=== PATIENT | male | born 1970 | race Hispanic/Latino ===

== ENCOUNTER 2023-04-12 08:32 | Inpatient (IN) | payer MEDICAID, SELFPAY ==
[2023-04-12] MEDS ORDERED: Iopamidol-370 76% 500 ML MDV (1 ML CHARGE) ONE (09:14)
[2023-04-12] MEDS ORDERED: Aspirin Chewable 81 MG TAB ONE (10:07)
[2023-04-12 10:11] LABS: #Basophils 0.1 thou/uL (0.0-0.2); #Monocytes 1.3 thou/uL (0.11-0.59); #Neutrophils 11.8 thou/uL (1.40-6.50); %Basophils 0.3 % (0.0-1.0); %Eosinophils 11.2 % (0.0-10.0); %Lymphocytes 12.8 % (21.0-51.0); %Monocytes 7.5 % (0.0-10.0); %Neutrophils 67.5 % (42.0-75.0); Hematocrit 36.1 % (42.0-52.0); Hemoglobin 12.3 g/dL (14.0-18.0); Mean Corpuscular HGB CONC 34.1 g/dL (32.0-36.0); Mean Corpuscular Hemoglobin 30.4 pg (27.0-31.0); Mean Corpuscular Volume 89.4 fl (78.0-98.0); Mean Platelet Volume 10.8 fL (7.4-10.4); Platelet Count 331 10x3/uL (130-400); RBC Distribution Width 13.3 % (11.5-14.5); Red Blood Cell (RBC) Count 4.04 mill/uL (4.70-6.10); White Blood Cell (WBC) Count 17.5 10x3/uL (4.8-10.8)
[2023-04-12 10:37] LABS: ALT (SGPT) 88 U/L (8-55); AST (SGOT) 21 U/L (5-34); Albumin 3.7 g/dL (3.5-5.0); Alkaline Phosphatase 81 U/L (40-110); Anion Gap 14 mmol/L (10-20); BUN (Urea Nitrogen) 36 mg/dL (8.4-25.7); Bilirubin, Total 0.5 mg/dL (0.2-1.2); Calc. Creatinine Clearance 0 mL/min (70-130); Calcium 8.8 mg/dL (7.8-10.44); Carbon Dioxide 26 mmol/L (22-29); Chloride 100 mmol/L (98-107); Estimated GFR 43; Globulin 3.1 g/dL (2.4-3.5); Glucose 266 mg/dL (70-105); Potassium 4.4 mmol/L (3.5-5.1); Protein, Total 6.8 g/dL (6.0-8.3); Sodium 136 mmol/L (136-145)
[2023-04-12 10:54] LABS: SARS-CoV-2 NAA Rapid Test Not Detected (NotDetected)
[2023-04-12] MEDS ORDERED: Furosemide 40 MG/4 ML VIAL ONE (10:54)
[2023-04-12] MEDS ORDERED: Piperacillin/Tazobactam 3.375 GM VIAL ONE (10:54)
[2023-04-12] MEDS ORDERED: Vancomycin 1 GM/200 ML (FROZEN) BAG ONE ×2 (10:54→11:01)
[2023-04-12] MEDS ORDERED: Sodium Chloride 0.9% 0 ML ONE (10:55)
[2023-04-12 11:06] LABS: Troponin I 4.835 ng/mL (< 0.028)
[2023-04-12 12:27] LABS: INR-International Normal Ratio 1.1; PTT 27.4 sec (22.9-36.1); Prothrombin Time 14.8 sec (12.0-14.7)
[2023-04-12] MEDS ORDERED: Acetaminophen 325 MG TAB PO PRN (13:23)
[2023-04-12] MEDS ORDERED: Senokot S 8.6-50 MG TAB PO PRN (13:23)
[2023-04-12] MEDS ORDERED: Ipratropium/Albuterol 3 ML NEB NEB PRN (13:32)
[2023-04-12] MEDS ORDERED: Glucagon 1 MG/ML KIT IM PRN (13:35)
[2023-04-12] MEDS ORDERED: Dextrose 5% in Water 1,000 ML IV PRN (13:35)
[2023-04-12] MEDS ORDERED: Dextrose 50% Abboject 50 ML SYRINGE SLOW IVP PRN (13:35)
[2023-04-12 15:13] LABS: Magnesium 1.8 mg/dL (1.6-2.6)
[2023-04-12] MEDS: cefTRIAXone\\ROCEPHIN 2 GM in Sodium Chloride 0.9% 100 ML IVPB SCH (16:27)
[2023-04-12] MEDS: HumaLOG 300 UNITS/3 ML VIAL SC PRN ×2 (16:27→20:52)
[2023-04-12 17:58] LABS: Troponin I 4.547 ng/mL (< 0.028)
[2023-04-12] MEDS ORDERED: Furosemide 20 MG/2 ML VIAL SLOW IVP SCH (18:00)
[2023-04-12] MEDS: Heparin 10,000 UNITS/ 10 ML VIAL SLOW IVP SCH (18:11)
[2023-04-12] MEDS: Heparin 25,000 units/D5W 500 ML IV SCH (18:13)
[2023-04-12] MEDS: Benzonatate 100 MG CAP PO PRN (18:20)
[2023-04-12 19:53] LABS: Legionella Urinary Ag Negative (Negative); Strep pneumo Urine Ag NEGATIVE (NEGATIVE)
[2023-04-12] MEDS: Atorvastatin Calcium 40 MG TAB PO SCH (20:36)
[2023-04-12] MEDS: Famotidine 20 MG TAB PO SCH (20:36)
[2023-04-12 21:08] LABS: Troponin I 5.974 ng/mL (< 0.028)
[2023-04-13] MEDS: Heparin 10,000 UNITS/ 10 ML VIAL SLOW IVP SCH ×4 (01:15→23:49)
[2023-04-13 05:39] LABS: #Basophils 0.1 thou/uL (0.0-0.2); #Eosinphils 2.1 thou/uL (0.0-0.7); #Monocytes 1.2 thou/uL (0.11-0.59); #Neutrophils 10.4 thou/uL (1.40-6.50); %Basophils 0.4 % (0.0-1.0); %Eosinophils 12.7 % (0.0-10.0); %Lymphocytes 14.9 % (21.0-51.0); %Monocytes 7.2 % (0.0-10.0); %Neutrophils 63.9 % (42.0-75.0); Hematocrit 37.5 % (42.0-52.0); Hemoglobin 12.4 g/dL (14.0-18.0); Mean Corpuscular HGB CONC 33.1 g/dL (32.0-36.0); Mean Corpuscular Hemoglobin 29.8 pg (27.0-31.0); Mean Corpuscular Volume 90.1 fl (78.0-98.0); Mean Platelet Volume 10.9 fL (7.4-10.4); Platelet Count 336 10x3/uL (130-400); RBC Distribution Width 13.4 % (11.5-14.5); Red Blood Cell (RBC) Count 4.16 mill/uL (4.70-6.10); White Blood Cell (WBC) Count 16.2 10x3/uL (4.8-10.8)
[2023-04-13] MEDS: HumaLOG 300 UNITS/3 ML VIAL SC PRN ×4 (05:57→20:55)
[2023-04-13 06:58] LABS: Cardiac Risk 4.5 (Less than 4.5); Cholesterol 134 mg/dl (< 200 Desired); HDL Cholesterol 30 mg/dL (>60 Neg Risk); LDL Cholesterol, Calculated 85 mg/dL; Magnesium 1.8 mg/dL (1.6-2.6); Triglycerides 93 mg/dL (Less than 150)
[2023-04-13] MEDS: Furosemide 40 MG/4 ML VIAL SLOW IVP SCH (09:41)
[2023-04-13] MEDS: Aspirin Chewable 81 MG TAB PO SCH (09:42)
[2023-04-13] MEDS: Famotidine 20 MG TAB PO SCH ×2 (09:42→20:55)
[2023-04-13] MEDS: Carvedilol 3.125 MG TAB PO SCH ×2 (09:42→18:30)
[2023-04-13] MEDS: cefTRIAXone\\ROCEPHIN 2 GM in Sodium Chloride 0.9% 100 ML IVPB SCH (13:31)
[2023-04-13] MEDS: Heparin 25,000 units/D5W 500 ML IV SCH (13:31)
[2023-04-13] MEDS: Azithromycin 500 MG in Sodium Chloride 0.9% 250 ML 250 ML IVPB SCH (14:39)
[2023-04-13] MEDS ORDERED: Communication Order-Pharmacy FS SCH (18:00)
[2023-04-13 18:57] LABS: Anion Gap 16 mmol/L (10-20); BUN (Urea Nitrogen) 35 mg/dL (8.4-25.7); Calc. Creatinine Clearance 61 mL/min (70-130); Calcium 8.6 mg/dL (7.8-10.44); Carbon Dioxide 26 mmol/L (22-29); Chloride 97 mmol/L (98-107); Estimated GFR 34; Glucose 341 mg/dL (70-105); Potassium 4.3 mmol/L (3.5-5.1); Sodium 135 mmol/L (136-145)
[2023-04-13] MEDS: Atorvastatin Calcium 40 MG TAB PO SCH (20:55)
[2023-04-14] MEDS: Heparin 25,000 units/D5W 500 ML IV SCH ×2 (02:54→14:22)
[2023-04-14 05:15] LABS: ALT (SGPT) 197 U/L (8-55); AST (SGOT) 62 U/L (5-34); Alkaline Phosphatase 101 U/L (40-110); Anion Gap 13 mmol/L (10-20); BUN (Urea Nitrogen) 33 mg/dL (8.4-25.7); Bilirubin, Total 0.4 mg/dL (0.2-1.2); Calc. Creatinine Clearance 63 mL/min (70-130); Calcium 8.5 mg/dL (7.8-10.44); Carbon Dioxide 28 mmol/L (22-29); Chloride 98 mmol/L (98-107); Estimated GFR 36; Globulin 2.9 g/dL (2.4-3.5); Glucose 367 mg/dL (70-105); Potassium 4.2 mmol/L (3.5-5.1); Protein, Total 5.9 g/dL (6.0-8.3); Sodium 135 mmol/L (136-145)
[2023-04-14] MEDS: HumaLOG 300 UNITS/3 ML VIAL SC PRN ×4 (06:01→21:04)
[2023-04-14 08:36] LABS: Critical Call Chem Troponin I RESULT DECREASING; Troponin I 4.049 ng/mL (< 0.028)
[2023-04-14] MEDS: Carvedilol 3.125 MG TAB PO SCH ×2 (08:42→17:05)
[2023-04-14] MEDS: Aspirin Chewable 81 MG TAB PO SCH (08:42)
[2023-04-14] MEDS: Furosemide 40 MG/4 ML VIAL SLOW IVP SCH (08:42)
[2023-04-14] MEDS ORDERED: Iopamidol-370 76% 500 ML MDV (1 ML CHARGE) ONE (09:01)
[2023-04-14] MEDS: Famotidine 20 MG TAB PO SCH ×2 (09:08→21:03)
[2023-04-14] MEDS: cefTRIAXone\\ROCEPHIN 2 GM in Sodium Chloride 0.9% 100 ML IVPB SCH (13:57)
[2023-04-14] MEDS: Azithromycin 500 MG in Sodium Chloride 0.9% 250 ML 250 ML IVPB SCH (14:37)
[2023-04-14] MEDS: Atorvastatin Calcium 40 MG TAB PO SCH (21:03)
[2023-04-15] MEDS: Heparin 25,000 units/D5W 500 ML IV SCH ×2 (02:26→14:17)
[2023-04-15] MEDS: HumaLOG 300 UNITS/3 ML VIAL SC PRN ×4 (06:14→21:36)
[2023-04-15 08:04] LABS: Anion Gap 12 mmol/L (10-20); BUN (Urea Nitrogen) 28 mg/dL (8.4-25.7); Calc. Creatinine Clearance 66 mL/min (70-130); Calcium 8.8 mg/dL (7.8-10.44); Carbon Dioxide 31 mmol/L (22-29); Chloride 98 mmol/L (98-107); Estimated GFR 39; Glucose 220 mg/dL (70-105); Potassium 4.6 mmol/L (3.5-5.1); Sodium 136 mmol/L (136-145)
[2023-04-15] MEDS: Carvedilol 3.125 MG TAB PO SCH ×2 (08:46→17:48)
[2023-04-15] MEDS: Aspirin Chewable 81 MG TAB PO SCH (08:47)
[2023-04-15] MEDS: Famotidine 20 MG TAB PO SCH ×2 (08:47→20:03)
[2023-04-15] MEDS: Benzonatate 100 MG CAP PO PRN ×2 (08:50→17:51)
[2023-04-15] MEDS: Azithromycin 500 MG in Sodium Chloride 0.9% 250 ML 250 ML IVPB SCH (13:01)
[2023-04-15] MEDS: cefTRIAXone\\ROCEPHIN 2 GM in Sodium Chloride 0.9% 100 ML IVPB SCH (14:16)
[2023-04-15] MEDS: Atorvastatin Calcium 40 MG TAB PO SCH (20:03)
[2023-04-16] MEDS: Heparin 25,000 units/D5W 500 ML IV SCH ×3 (00:46→20:12)
[2023-04-16] MEDS ORDERED: diphenhydrAMINE 25 MG CAP PO SCH (05:15)
[2023-04-16] MEDS: Heparin 10,000 UNITS/ 10 ML VIAL SLOW IVP SCH ×2 (07:15→13:53)
[2023-04-16] MEDS: Aspirin Chewable 81 MG TAB PO SCH (09:40)
[2023-04-16] MEDS: Carvedilol 3.125 MG TAB PO SCH ×2 (09:40→17:18)
[2023-04-16] MEDS: Saccharomyces boulardii 250 MG CAP PO SCH (09:40)
[2023-04-16] MEDS: Famotidine 20 MG TAB PO SCH ×2 (09:40→20:12)
[2023-04-16 10:23] LABS: Anion Gap 12 mmol/L (10-20); BUN (Urea Nitrogen) 26 mg/dL (8.4-25.7); Calc. Creatinine Clearance 72 mL/min (70-130); Calcium 8.9 mg/dL (7.8-10.44); Carbon Dioxide 27 mmol/L (22-29); Chloride 99 mmol/L (98-107); Estimated GFR 42; Glucose 204 mg/dL (70-105); Potassium 4.7 mmol/L (3.5-5.1); Sodium 133 mmol/L (136-145)
[2023-04-16] MEDS: HumaLOG 300 UNITS/3 ML VIAL SC PRN ×3 (12:00→21:10)
[2023-04-16] MEDS: Azithromycin 500 MG in Sodium Chloride 0.9% 250 ML 250 ML IVPB SCH (13:40)
[2023-04-16] MEDS: cefTRIAXone\\ROCEPHIN 2 GM in Sodium Chloride 0.9% 100 ML IVPB SCH (14:43)
[2023-04-16] MEDS: Atorvastatin Calcium 40 MG TAB PO SCH (20:12)
[2023-04-17 02:53] LABS: #Eosinphils 1.2 thou/uL (0.0-0.7); #Monocytes 0.8 thou/uL (0.11-0.59); %Basophils 0.2 % (0.0-1.0); %Eosinophils 9.8 % (0.0-10.0); %Lymphocytes 23.4 % (21.0-51.0); %Monocytes 6.9 % (0.0-10.0); %Neutrophils 58.6 % (42.0-75.0); Hematocrit 35.3 % (42.0-52.0); Hemoglobin 11.6 g/dL (14.0-18.0); Mean Corpuscular HGB CONC 32.9 g/dL (32.0-36.0); Mean Corpuscular Hemoglobin 29.6 pg (27.0-31.0); Mean Corpuscular Volume 90.1 fl (78.0-98.0); Mean Platelet Volume 10.9 fL (7.4-10.4); Platelet Count 318 10x3/uL (130-400); Red Blood Cell (RBC) Count 3.92 mill/uL (4.70-6.10); White Blood Cell (WBC) Count 11.9 10x3/uL (4.8-10.8)
[2023-04-17 03:25] LABS: ALT (SGPT) 102 U/L (8-55); AST (SGOT) 27 U/L (5-34); Alkaline Phosphatase 80 U/L (40-110); Anion Gap 15 mmol/L (10-20); BUN (Urea Nitrogen) 34 mg/dL (8.4-25.7); Bilirubin, Total 0.2 mg/dL (0.2-1.2); Calc. Creatinine Clearance 61 mL/min (70-130); Calcium 8.7 mg/dL (7.8-10.44); Carbon Dioxide 24 mmol/L (22-29); Chloride 97 mmol/L (98-107); Estimated GFR 35; Globulin 3.4 g/dL (2.4-3.5); Glucose 221 mg/dL (70-105); Potassium 4.6 mmol/L (3.5-5.1); Protein, Total 6.4 g/dL (6.0-8.3); Sodium 131 mmol/L (136-145)
[2023-04-17] MEDS: Heparin 25,000 units/D5W 500 ML IV SCH (04:28)
[2023-04-17] MEDS: HumaLOG 300 UNITS/3 ML VIAL SC PRN ×3 (05:29→17:48)
[2023-04-17] MEDS: Saccharomyces boulardii 250 MG CAP PO SCH (08:25)
[2023-04-17] MEDS: Famotidine 20 MG TAB PO SCH ×2 (08:25→20:57)
[2023-04-17] MEDS: Carvedilol 3.125 MG TAB PO SCH ×2 (08:25→17:48)
[2023-04-17] MEDS: Aspirin Chewable 81 MG TAB PO SCH (08:25)
[2023-04-17] MEDS: cefTRIAXone\\ROCEPHIN 2 GM in Sodium Chloride 0.9% 100 ML IVPB SCH (13:29)
[2023-04-17] MEDS ORDERED: DOBUTamine 500 mg/250 ml 250 ML IVPB SCH (14:00)
[2023-04-17] MEDS: Azithromycin 500 MG in Sodium Chloride 0.9% 250 ML 250 ML IVPB SCH (14:08)
[2023-04-17] MEDS: DOBUTamine 500 mg/250 ml 500 MG in Premix 1 BAG IVPB SCH (15:01)
[2023-04-17] MEDS: Atorvastatin Calcium 40 MG TAB PO SCH (20:57)
[2023-04-18] MEDS ORDERED: diphenhydrAMINE 25 MG CAP PO SCH (05:45)
[2023-04-18 08:17] LABS: #Basophils 0.1 thou/uL (0.0-0.2); #Eosinphils 1.2 thou/uL (0.0-0.7); #Monocytes 0.8 thou/uL (0.11-0.59); #Neutrophils 6.2 thou/uL (1.40-6.50); %Basophils 0.5 % (0.0-1.0); %Eosinophils 11.3 % (0.0-10.0); %Lymphocytes 20.1 % (21.0-51.0); %Monocytes 7.9 % (0.0-10.0); %Neutrophils 59.5 % (42.0-75.0); Hematocrit 34.7 % (42.0-52.0); Hemoglobin 11.4 g/dL (14.0-18.0); Mean Corpuscular HGB CONC 32.9 g/dL (32.0-36.0); Mean Corpuscular Hemoglobin 29.8 pg (27.0-31.0); Mean Corpuscular Volume 90.6 fl (78.0-98.0); Mean Platelet Volume 10.4 fL (7.4-10.4); Platelet Count 304 10x3/uL (130-400); Red Blood Cell (RBC) Count 3.83 mill/uL (4.70-6.10); White Blood Cell (WBC) Count 10.5 10x3/uL (4.8-10.8)
[2023-04-18] MEDS: Carvedilol 3.125 MG TAB PO SCH ×2 (08:18→17:22)
[2023-04-18] MEDS: Famotidine 20 MG TAB PO SCH ×2 (08:18→20:19)
[2023-04-18] MEDS: Aspirin Chewable 81 MG TAB PO SCH (08:18)
[2023-04-18] MEDS: Saccharomyces boulardii 250 MG CAP PO SCH (08:18)
[2023-04-18] MEDS: Cefdinir 300 MG CAP PO SCH (08:18)
[2023-04-18 08:22] LABS: Anion Gap 14 mmol/L (10-20); BUN (Urea Nitrogen) 24 mg/dL (8.4-25.7); Calc. Creatinine Clearance 66 mL/min (70-130); Calcium 9.1 mg/dL (7.8-10.44); Carbon Dioxide 25 mmol/L (22-29); Chloride 99 mmol/L (98-107); Estimated GFR 38; Glucose 191 mg/dL (70-105); Potassium 4.9 mmol/L (3.5-5.1); Sodium 133 mmol/L (136-145)
[2023-04-18] MEDS ORDERED: Furosemide 20 MG/2 ML VIAL SLOW IVP SCH (13:00)
[2023-04-18] MEDS: HumaLOG 300 UNITS/3 ML VIAL SC PRN ×3 (13:57→21:09)
[2023-04-18] MEDS: Atorvastatin Calcium 40 MG TAB PO SCH (20:19)
[2023-04-18] MEDS: DOBUTamine 500 mg/250 ml 500 MG in Premix 1 BAG IVPB SCH (21:59)
[2023-04-19] MEDS ORDERED: Ondansetron ODT 4 MG TAB PO PRN (04:29)
[2023-04-19] MEDS ORDERED: diphenhydrAMINE 25 MG CAP PO SCH (04:30)
[2023-04-19] MEDS: Benzonatate 100 MG CAP PO PRN (04:38)
[2023-04-19 05:29] LABS: Anion Gap 16 mmol/L (10-20); BUN (Urea Nitrogen) 34 mg/dL (8.4-25.7); Calc. Creatinine Clearance 60 mL/min (70-130); Calcium 9.5 mg/dL (7.8-10.44); Carbon Dioxide 25 mmol/L (22-29); Chloride 98 mmol/L (98-107); Estimated GFR 36; Glucose 190 mg/dL (70-105); Sodium 134 mmol/L (136-145)
[2023-04-19 08:38] LABS: Amphetamine Not Detected (NotDetected); Barbiturates Screen Not Detected (NotDetected); Benzodiazepine Screen Not Detected (NotDetected); Cocaine Metabolite Screen Not Detected (NotDetected); Methadone Not Detected (NotDetected); Methamphetamine Not Detected (NotDetected); Opiate Screen Not Detected (NotDetected); Oxycodone Screen Not Detected (NotDetected); Phencyclidine (PCP) Not Detected (NotDetected); THC/Cannabinoid Screen Not Detected (NotDetected); Tricyclic Screen Not Detected (NotDetected)
[2023-04-19] MEDS: Aspirin Chewable 81 MG TAB PO SCH (08:53)
[2023-04-19] MEDS: Carvedilol 3.125 MG TAB PO SCH ×2 (08:53→17:34)
[2023-04-19] MEDS: Cefdinir 300 MG CAP PO SCH (08:53)
[2023-04-19] MEDS: Saccharomyces boulardii 250 MG CAP PO SCH (08:53)
[2023-04-19] MEDS: Famotidine 20 MG TAB PO SCH (08:53)
[2023-04-19] MEDS: HumaLOG 300 UNITS/3 ML VIAL SC PRN ×3 (12:08→21:42)
[2023-04-19] MEDS: Furosemide 20 MG/2 ML VIAL SLOW IVP SCH (14:07)
[2023-04-19] MEDS: Atorvastatin Calcium 40 MG TAB PO SCH (21:43)
[2023-04-20] MEDS: Furosemide 20 MG/2 ML VIAL SLOW IVP SCH ×2 (05:41→14:06)
[2023-04-20 05:43] LABS: Anion Gap 13 mmol/L (10-20); BUN (Urea Nitrogen) 38 mg/dL (8.4-25.7); Calc. Creatinine Clearance 52 mL/min (70-130); Calcium 9.4 mg/dL (7.8-10.44); Carbon Dioxide 28 mmol/L (22-29); Chloride 98 mmol/L (98-107); Estimated GFR 31; Glucose 162 mg/dL (70-105); Potassium 4.3 mmol/L (3.5-5.1); Sodium 135 mmol/L (136-145)
[2023-04-20] MEDS: Carvedilol 3.125 MG TAB PO SCH ×2 (08:23→17:33)
[2023-04-20] MEDS: Aspirin Chewable 81 MG TAB PO SCH (08:23)
[2023-04-20] MEDS: Saccharomyces boulardii 250 MG CAP PO SCH (08:23)
[2023-04-20] MEDS: Famotidine 20 MG TAB PO SCH (08:23)
[2023-04-20] MEDS: Cefdinir 300 MG CAP PO SCH (08:24)
[2023-04-20] MEDS: HumuLIN 70/30 100 Unit/ ml 10 ml Vial SC SCH ×2 (08:24→17:33)
[2023-04-20] MEDS: HumaLOG 300 UNITS/3 ML VIAL SC PRN ×3 (11:35→20:43)
[2023-04-20] MEDS: Atorvastatin Calcium 40 MG TAB PO SCH (20:43)
[2023-04-21] MEDS: Furosemide 20 MG/2 ML VIAL SLOW IVP SCH (05:01)
[2023-04-21 05:28] LABS: Anion Gap 14 mmol/L (10-20); BUN (Urea Nitrogen) 44 mg/dL (8.4-25.7); Calc. Creatinine Clearance 47 mL/min (70-130); Calcium 9.7 mg/dL (7.8-10.44); Carbon Dioxide 28 mmol/L (22-29); Chloride 99 mmol/L (98-107); Estimated GFR 27; Glucose 156 mg/dL (70-105); Potassium 4.2 mmol/L (3.5-5.1); Sodium 137 mmol/L (136-145)
[2023-04-21] MEDS: Aspirin Chewable 81 MG TAB PO SCH (08:36)
[2023-04-21] MEDS: Famotidine 20 MG TAB PO SCH (08:36)
[2023-04-21] MEDS: Carvedilol 3.125 MG TAB PO SCH ×2 (08:37→16:20)
[2023-04-21] MEDS: Saccharomyces boulardii 250 MG CAP PO SCH (08:37)
[2023-04-21] MEDS: Cefdinir 300 MG CAP PO SCH (08:37)
[2023-04-21] MEDS: HumuLIN 70/30 100 Unit/ ml 10 ml Vial SC SCH ×2 (08:39→16:19)
[2023-04-21] MEDS: HumaLOG 300 UNITS/3 ML VIAL SC PRN (16:19)
[2023-04-21] MEDS: Atorvastatin Calcium 40 MG TAB PO SCH (20:39)
[2023-04-22 09:00] LABS: ALT (SGPT) 84 U/L (8-55); AST (SGOT) 19 U/L (5-34); Albumin 3.7 g/dL (3.5-5.0); Alkaline Phosphatase 86 U/L (40-110); Anion Gap 15 mmol/L (10-20); BUN (Urea Nitrogen) 41 mg/dL (8.4-25.7); Bilirubin, Total 0.6 mg/dL (0.2-1.2); Calc. Creatinine Clearance 53 mL/min (70-130); Calcium 9.6 mg/dL (7.8-10.44); Carbon Dioxide 26 mmol/L (22-29); Chloride 97 mmol/L (98-107); Estimated GFR 32; Glucose 150 mg/dL (70-105); Potassium 4.1 mmol/L (3.5-5.1); Protein, Total 7.7 g/dL (6.0-8.3); Sodium 134 mmol/L (136-145)
[2023-04-22] MEDS: HumuLIN 70/30 100 Unit/ ml 10 ml Vial SC SCH ×2 (09:11→18:26)
[2023-04-22] MEDS: Famotidine 20 MG TAB PO SCH (09:12)
[2023-04-22] MEDS: Aspirin Chewable 81 MG TAB PO SCH (09:13)
[2023-04-22] MEDS: Saccharomyces boulardii 250 MG CAP PO SCH (09:13)
[2023-04-22] MEDS: Cefdinir 300 MG CAP PO SCH (09:13)
[2023-04-22] MEDS: Carvedilol 3.125 MG TAB PO SCH ×2 (09:13→18:25)
[2023-04-22] MEDS ORDERED: Communication Order-Pharmacy FS SCH (19:00)
[2023-04-22] MEDS: HumaLOG 300 UNITS/3 ML VIAL SC PRN (20:33)
[2023-04-22] MEDS: Atorvastatin Calcium 40 MG TAB PO SCH (20:33)
[2023-04-23] MEDS: Sodium Chloride 0.9% 1,000 ML IV SCH ×2 (06:10→10:17)
[2023-04-23 06:59] VITALS: BMI 34.5
[2023-04-23] MEDS ORDERED: Midazolam HCl 2 mg/2 ml Vial ONE (07:04)
[2023-04-23] MEDS ORDERED: Lidocaine 1% PF 5 ML VIAL ONE (07:04)
[2023-04-23] MEDS ORDERED: Heparin 10,000 UNITS/ 10 ML VIAL ONE (07:04)
[2023-04-23] MEDS ORDERED: Verapamil 5 MG/2 ML VIAL ONE (07:04)
[2023-04-23] MEDS ORDERED: fentaNYL 50 mcg/mL 1 mL Vial ONE (07:04)
[2023-04-23] MEDS ORDERED: Lidocaine 1% (PF) 30 ML VIAL ONE (07:05)
[2023-04-23] MEDS ORDERED: Nitroglycerin 50 MG/250 ML BOT 250 ML ONE (07:05)
[2023-04-23] MEDS ORDERED: PHENYLEPHRINE-NS 100 MCG/ML 10 ML SYRINGE ONE (08:38)
[2023-04-23] MEDS: Carvedilol 3.125 MG TAB PO SCH ×2 (10:16→16:27)
[2023-04-23] MEDS: HumuLIN 70/30 100 Unit/ ml 10 ml Vial SC SCH ×2 (10:16→16:28)
[2023-04-23] MEDS: Aspirin Chewable 81 MG TAB PO SCH (10:18)
[2023-04-23] MEDS: Saccharomyces boulardii 250 MG CAP PO SCH (10:18)
[2023-04-23] MEDS: Cefdinir 300 MG CAP PO SCH (10:18)
[2023-04-23] MEDS: Famotidine 20 MG TAB PO SCH (10:18)
[2023-04-23] MEDS ORDERED: Iopamidol 370 76% 100 ML VIAL ONE (13:55)
[2023-04-23] MEDS ORDERED: Sodium Chloride 0.9% 200 ML IV PRN (18:22)
[2023-04-23] MEDS ORDERED: Nitroglycerin 0.4 MG TAB (25 Tab Bottle) SL PRN (18:22)
[2023-04-23] MEDS ORDERED: Acetaminophen/Codeine 30-300mg Tablet PO PRN ×2 (18:22)
[2023-04-23] MEDS: DOBUTamine 500 mg/250 ml 250 ML IVPB SCH (19:35)
[2023-04-23] MEDS: Atorvastatin Calcium 40 MG TAB PO SCH (20:07)
[2023-04-23] MEDS: HumaLOG 300 UNITS/3 ML VIAL SC PRN (20:57)
[2023-04-24 05:31] LABS: Anion Gap 12 mmol/L (10-20); BUN (Urea Nitrogen) 34 mg/dL (8.4-25.7); Calc. Creatinine Clearance 63 mL/min (70-130); Carbon Dioxide 23 mmol/L (22-29); Chloride 103 mmol/L (98-107); Estimated GFR 39; Glucose 160 mg/dL (70-105); Potassium 4.1 mmol/L (3.5-5.1); Sodium 134 mmol/L (136-145)
[2023-04-24] MEDS: HumuLIN 70/30 100 Unit/ ml 10 ml Vial SC SCH ×2 (08:32→18:00)
[2023-04-24] MEDS: Carvedilol 3.125 MG TAB PO SCH ×2 (08:33→18:01)
[2023-04-24] MEDS: Aspirin Chewable 81 MG TAB PO SCH (08:33)
[2023-04-24] MEDS: Famotidine 20 MG TAB PO SCH (08:33)
[2023-04-24] MEDS: Saccharomyces boulardii 250 MG CAP PO SCH (08:33)
[2023-04-24] MEDS: Sodium Chloride 0.9% 1,000 ML IV SCH ×2 (09:31→09:33)
[2023-04-24] MEDS: Atorvastatin Calcium 40 MG TAB PO SCH (19:47)
[2023-04-24] MEDS: DOBUTamine 500 mg/250 ml 250 ML IVPB SCH (19:48)
[2023-04-25 04:17] LABS: Manual Diff?? YES; Mean Corpuscular HGB CONC 33.3 g/dL (32.0-36.0); Mean Corpuscular Hemoglobin 29.8 pg (27.0-31.0); Mean Corpuscular Volume 89.4 fl (78.0-98.0); Mean Platelet Volume 10.7 fL (7.4-10.4); Platelet Count 303 10x3/uL (130-400); Red Blood Cell (RBC) Count 4.36 mill/uL (4.70-6.10); White Blood Cell (WBC) Count 12.3 10x3/uL (4.8-10.8)
[2023-04-25 04:38] LABS: Anion Gap 13 mmol/L (10-20); BUN (Urea Nitrogen) 29 mg/dL (8.4-25.7); Calc. Creatinine Clearance 70 mL/min (70-130); Calcium 9.4 mg/dL (7.8-10.44); Carbon Dioxide 23 mmol/L (22-29); Chloride 104 mmol/L (98-107); Estimated GFR 44; Glucose 98 mg/dL (70-105); Sodium 136 mmol/L (136-145)
[2023-04-25 04:42] LABS: Delete Auto Diff?? YES
[2023-04-25 05:39] LABS: Band 2 % (5-11); CellaVision Operator ID LAB.JMM; Eosinophils 28 % (0-10); Lymphocytes 22 % (21-51); Monocytes 10 % (0-10); Neutrophil 38 % (42-75); Platelet Adequacy Comment Platelets Normal; RBC Morphology Within Normal Limits; Smudge Cells 7.8 %; Total Cell Count 102
[2023-04-25] MEDS: Saccharomyces boulardii 250 MG CAP PO SCH (09:16)
[2023-04-25] MEDS: Famotidine 20 MG TAB PO SCH (09:16)
[2023-04-25] MEDS: Carvedilol 3.125 MG TAB PO SCH ×2 (09:16→17:36)
[2023-04-25] MEDS: Aspirin Chewable 81 MG TAB PO SCH (09:16)
[2023-04-25] MEDS: HumuLIN 70/30 100 Unit/ ml 10 ml Vial SC SCH ×2 (09:16→17:36)
[2023-04-25] MEDS: DOBUTamine 500 mg/250 ml 250 ML IVPB SCH (13:15)
[2023-04-25] MEDS: Atorvastatin Calcium 40 MG TAB PO SCH (20:03)
[2023-04-26] MEDS: DOBUTamine 500 mg/250 ml 250 ML IVPB SCH ×2 (01:07→17:12)
[2023-04-26 05:52] LABS: Anion Gap 14 mmol/L (10-20); BUN (Urea Nitrogen) 27 mg/dL (8.4-25.7); Calc. Creatinine Clearance 67 mL/min (70-130); Calcium 9.4 mg/dL (7.8-10.44); Carbon Dioxide 25 mmol/L (22-29); Chloride 101 mmol/L (98-107); Estimated GFR 42; Glucose 127 mg/dL (70-105); Potassium 3.8 mmol/L (3.5-5.1); Sodium 136 mmol/L (136-145)
[2023-04-26] MEDS: Aspirin Chewable 81 MG TAB PO SCH (08:40)
[2023-04-26] MEDS: HumuLIN 70/30 100 Unit/ ml 10 ml Vial SC SCH ×2 (08:40→17:06)
[2023-04-26] MEDS: Famotidine 20 MG TAB PO SCH (08:40)
[2023-04-26] MEDS: Carvedilol 3.125 MG TAB PO SCH ×2 (08:40→17:06)
[2023-04-26] MEDS: Saccharomyces boulardii 250 MG CAP PO SCH (08:40)
[2023-04-26] MEDS: Atorvastatin Calcium 40 MG TAB PO SCH (21:00)
[2023-04-27 05:25] LABS: Anion Gap 13 mmol/L (10-20); BUN (Urea Nitrogen) 26 mg/dL (8.4-25.7); Calc. Creatinine Clearance 67 mL/min (70-130); Calcium 9.3 mg/dL (7.8-10.44); Carbon Dioxide 24 mmol/L (22-29); Chloride 104 mmol/L (98-107); Estimated GFR 41; Glucose 102 mg/dL (70-105); Potassium 3.8 mmol/L (3.5-5.1); Sodium 137 mmol/L (136-145)
[2023-04-27] MEDS: Aspirin Chewable 81 MG TAB PO SCH (08:57)
[2023-04-27] MEDS: Famotidine 20 MG TAB PO SCH (08:57)
[2023-04-27] MEDS: Carvedilol 3.125 MG TAB PO SCH ×2 (08:57→17:34)
[2023-04-27] MEDS: HumuLIN 70/30 100 Unit/ ml 10 ml Vial SC SCH ×2 (08:57→17:34)
[2023-04-27] MEDS: Saccharomyces boulardii 250 MG CAP PO SCH (08:57)
[2023-04-27] MEDS: DOBUTamine 500 mg/250 ml 250 ML IVPB SCH (10:51)
[2023-04-27] MEDS: Atorvastatin Calcium 40 MG TAB PO SCH (20:44)
[2023-04-28] MEDS: DOBUTamine 500 mg/250 ml 250 ML IVPB SCH ×2 (05:19→23:12)
[2023-04-28] MEDS: Carvedilol 3.125 MG TAB PO SCH ×2 (08:50→18:51)
[2023-04-28] MEDS: Aspirin Chewable 81 MG TAB PO SCH (08:50)
[2023-04-28] MEDS: Saccharomyces boulardii 250 MG CAP PO SCH (08:50)
[2023-04-28] MEDS: Famotidine 20 MG TAB PO SCH (08:52)
[2023-04-28] MEDS: HumuLIN 70/30 100 Unit/ ml 10 ml Vial SC SCH ×2 (08:53→18:51)
[2023-04-28] MEDS ORDERED: Communication Order-Pharmacy FS SCH (14:56)
[2023-04-28] MEDS: Atorvastatin Calcium 40 MG TAB PO SCH (20:50)
[2023-04-29 05:46] LABS: Anion Gap 16 mmol/L (10-20); BUN (Urea Nitrogen) 22 mg/dL (8.4-25.7); Calc. Creatinine Clearance 67 mL/min (70-130); Calcium 9.4 mg/dL (7.8-10.44); Carbon Dioxide 23 mmol/L (22-29); Chloride 102 mmol/L (98-107); Estimated GFR 42; Glucose 103 mg/dL (70-105); Potassium 3.8 mmol/L (3.5-5.1); Sodium 137 mmol/L (136-145)
[2023-04-29] MEDS: Carvedilol 3.125 MG TAB PO SCH (06:03)
[2023-04-29] MEDS: HumuLIN 70/30 100 Unit/ ml 10 ml Vial SC SCH (08:26)
[2023-04-29] MEDS ORDERED: Sodium Chloride 0.9% 100 ML ONE (09:01)
[2023-04-29] MEDS ORDERED: CEFAZOLIN 2 GM VIAL ONE (09:01)
[2023-04-29] MEDS ORDERED: Lidocaine 2% PF 5 ML VIAL ONE (09:01)
[2023-04-29] MEDS ORDERED: EPINEPHrine 4 MG in Dextrose 5% in Water 250 ML IVP SCH (10:00)
[2023-04-29] MEDS ORDERED: Heparin 10,000 UNITS/1 ML VIAL 30,000 UNITS in Sodium Chloride 0.9% 1,000 ML FS SCH (10:00)
[2023-04-29] MEDS ORDERED: Milrinone 10 MG/10 ML VIAL ONE (11:02)
[2023-04-29] MEDS ORDERED: Dexmedetomidine 200 MCG/2 ML VIAL ONE (11:02)
[2023-04-29] MEDS ORDERED: NOREPINEPHRINE 8 MG/250 ML-D5W 250 ML ONE (11:08)
[2023-04-29] MEDS ORDERED: PHENYLEPHRINE-NS 100 MCG/ML 10 ML SYRINGE ONE ×2 (11:08→11:13)
[2023-04-29] MEDS ORDERED: Albumin 5% 500 ML ONE (11:08)
[2023-04-29] MEDS ORDERED: PROPOFOL 20 ML ONE (11:10)
[2023-04-29] MEDS ORDERED: Midazolam HCl 2 mg/2 ml Vial ONE (11:11)
[2023-04-29] MEDS ORDERED: fentaNYL PF 100 MCG/2 ML SYRINGE ONE ×2 (11:12→15:46)
[2023-04-29] MEDS ORDERED: Vecuronium 10 MG VIAL ONE ×2 (11:12→12:02)
[2023-04-29] MEDS ORDERED: Glycopyrrolate 0.2 MG/ML 5 ML SYRINGE ONE (11:13)
[2023-04-29] MEDS ORDERED: Calcium Chloride 1 GM/10 ML Abboject SYRINGE ONE (12:02)
[2023-04-29] MEDS ORDERED: Succinylcholine 200 MG/10 ml SYRINGE FS ONE (12:02)
[2023-04-29] MEDS ORDERED: Lidocaine 2% PF 100 mg/5 ml Syringe ONE (12:02)
[2023-04-29] MEDS ORDERED: Protamine Sulfate 250 MG/25 ML VIAL ONE (12:02)
[2023-04-29] MEDS ORDERED: Cardioplegic Soln 1,000 ML BAG ONE (12:02)
[2023-04-29] MEDS ORDERED: Lidocaine 1% PF 5 ML VIAL ONE (12:02)
[2023-04-29] MEDS ORDERED: Papaverine 60 MG/2 ML VIAL ONE (12:02)
[2023-04-29] MEDS ORDERED: Magnesium 5 GM/10 ML VIAL ONE (12:02)
[2023-04-29] MEDS ORDERED: Vancomycin 1 GM VIAL ONE (12:02)
[2023-04-29] MEDS ORDERED: Heparin 30,000 units/30 ml VIAL ONE (12:02)
[2023-04-29] MEDS ORDERED: Thrombin 5000 UNITS/5 ML VIAL ONE (12:02)
[2023-04-29] MEDS ORDERED: Heparin 5,000 UNITS/ML VIAL ONE ×2 (12:02→14:22)
[2023-04-29] MEDS ORDERED: Rocuronium Bromide 10 MG/ML (10ML VIAL) ONE ×2 (12:02→13:08)
[2023-04-29] MEDS ORDERED: Potassium Chloride 60 MEQ/30 ML VIAL ONE (12:02)
[2023-04-29] MEDS ORDERED: Sodium Bicarb 50 MEQ/50 ML VIAL ONE (12:02)
[2023-04-29] MEDS ORDERED: Aminocaproic Acid 5 GM/20 ML VIAL ONE (12:02)
[2023-04-29] MEDS ORDERED: Mannitol 12.5 GM/50 ML ONE (12:02)
[2023-04-29] MEDS ORDERED: Isoflurane INH ANEST 100 ML BOTTLE ONE (12:33)
[2023-04-29] MEDS ORDERED: Insulin Regular 300 UNITS/3 ML VIAL ONE (14:23)
[2023-04-29] MEDS ORDERED: DOBUTamine 500 mg/250 ml 250 ML ONE (15:23)
[2023-04-29] MEDS ORDERED: Nitroglycerin 50 MG/250 ML BOT 250 ML IVPB PRN (15:41)
[2023-04-29] MEDS ORDERED: Potassium Chloride 20 MEQ/100 ML PREMIX BAG IVPB PRN (15:41)
[2023-04-29] MEDS ORDERED: Acetaminophen 325 MG TAB PO PRN (15:41)
[2023-04-29] MEDS ORDERED: Hetastarch 6% 500 ML 500 ML IVPB PRN (15:41)
[2023-04-29] MEDS ORDERED: Post-Op Insulin Drip Protocol IVPB ONE (15:41)
[2023-04-29] MEDS ORDERED: Ondansetron PF 4 MG/2 ML Vial IVP PRN (15:41)
[2023-04-29] MEDS ORDERED: NOREPINEPHRINE 8 MG/250 ML-D5W 250 ML IVPB PRN (15:41)
[2023-04-29] MEDS ORDERED: niCARdipine 25 MG in Sodium Chloride 0.9% 250 ML 250 ML IVPB PRN (15:41)
[2023-04-29] MEDS ORDERED: Bisacodyl 5 MG TAB PO PRN (15:41)
[2023-04-29] MEDS ORDERED: Promethazine HCl 25 MG/ML VIAL IM PRN (15:41)
[2023-04-29] MEDS ORDERED: Mag-Al 1200 mg/1200 mg/30 ML UDCUP PO PRN (15:41)
[2023-04-29] MEDS ORDERED: fentaNYL 50 mcg/mL 1 mL Vial SLOW IVP PRN (15:41)
[2023-04-29] MEDS ORDERED: Ipratropium/Albuterol 3 ML NEB NEB PRN (15:41)
[2023-04-29] MEDS ORDERED: hydrALAZINE 20 MG/ML VIAL SLOW IVP PRN (15:41)
[2023-04-29] MEDS ORDERED: DOPamine 400 MG/D5W 250 ML 250 ML IVPB PRN (15:41)
[2023-04-29] MEDS ORDERED: Bisacodyl 10 MG SUPP PR PRN (15:41)
[2023-04-29] MEDS: Morphine 2 MG/ML VIAL SLOW IVP PRN ×4 (15:59→19:34)
[2023-04-29] MEDS ORDERED: Dextrose 5% in Water 1,000 ML IV PRN (16:00)
[2023-04-29] MEDS ORDERED: HUMULIN R 100 UNITS in Sodium Chloride 0.9% 100 ML IVPB SCH (16:00)
[2023-04-29] MEDS ORDERED: Dextrose 50% Abboject 50 ML SYRINGE SLOW IVP PRN (16:00)
[2023-04-29] MEDS ORDERED: Glucagon 1 MG/ML KIT SC PRN (16:00)
[2023-04-29] MEDS: Lactated Ringer's 1,000 ML IV SCH (16:01)
[2023-04-29 16:04] LABS: Actual Bicarbonate (HCO3a) 21.3 mEq/L (22-28); Base Excess (BEa) -3.9 mEq/L (-2.0 to +3.0); CO2 Tension 39.2 mmHg (35.0-45.0); Calcium, Ionized (arterial) 1.11 mmol/L (1.12-1.30); Carboxyhemoglobin (COHb) 0.5 gm% (0.0-3.0); Hematocrit-ABG 37 % (42.0-52.0); Hemoglobin (Hb) 12.6 g/dL (14.0-18.0); O2 Tension (PaO2), arterial 94.1 mmHg (80.0-100.0); pH, Arterial 7.352 (7.35-7.45)
[2023-04-29 16:06] LABS: Puncture Site Arterial Line
[2023-04-29 16:10] LABS: #Basophils 0.1 thou/uL (0.0-0.2); #Eosinphils 2.1 thou/uL (0.0-0.7); #Monocytes 0.7 thou/uL (0.11-0.59); #Neutrophils 13.2 thou/uL (1.40-6.50); %Basophils 0.3 % (0.0-1.0); %Lymphocytes 14.6 % (21.0-51.0); %Monocytes 3.8 % (0.0-10.0); %Neutrophils 69.5 % (42.0-75.0); Hematocrit 35.1 % (42.0-52.0); Hemoglobin 11.8 g/dL (14.0-18.0); Mean Corpuscular HGB CONC 33.6 g/dL (32.0-36.0); Mean Corpuscular Hemoglobin 30.2 pg (27.0-31.0); Mean Corpuscular Volume 89.8 fl (78.0-98.0); Mean Platelet Volume 10.3 fL (7.4-10.4); Platelet Count 198 10x3/uL (130-400); RBC Distribution Width 12.8 % (11.5-14.5); Red Blood Cell (RBC) Count 3.91 mill/uL (4.70-6.10)
[2023-04-29] MEDS: CEFAZOLIN 2 GM in Sodium Chloride 0.9% 100 ML IVPB SCH ×2 (16:18→23:52)
[2023-04-29 16:23] LABS: INR-International Normal Ratio 1.4; Prothrombin Time 17.3 sec (12.0-14.7)
[2023-04-29 16:24] LABS: PTT 27.9 sec (22.9-36.1)
[2023-04-29 18:46] LABS: Anion Gap 12 mmol/L (10-20); BUN (Urea Nitrogen) 21 mg/dL (8.4-25.7); Calc. Creatinine Clearance 70 mL/min (70-130); Calcium 7.8 mg/dL (7.8-10.44); Carbon Dioxide 23 mmol/L (22-29); Chloride 107 mmol/L (98-107); Estimated GFR 44; Glucose 145 mg/dL (70-105); Potassium 3.6 mmol/L (3.5-5.1); Sodium 138 mmol/L (136-145)
[2023-04-29 19:29] LABS: Actual Bicarbonate (HCO3a) 23.2 mEq/L (22-28); Base Excess (BEa) -2.1 mEq/L (-2.0 to +3.0); CO2 Tension 41.9 mmHg (35.0-45.0); Calcium, Ionized (arterial) 1.13 mmol/L (1.12-1.30); Carboxyhemoglobin (COHb) 0.3 gm% (0.0-3.0); Hematocrit-ABG 37 % (42.0-52.0); Hemoglobin (Hb) 12.5 g/dL (14.0-18.0); O2 Tension (PaO2), arterial 106.8 mmHg (80.0-100.0); Potassium - ABG Lab 3.64 mmol/L (3.70-5.30); pH, Arterial 7.361 (7.35-7.45)
[2023-04-29 19:40] LABS: ALV-art Gradient 197.325 mmHg (0-20); Puncture Site Arterial Line
[2023-04-29] MEDS: Famotidine/PF 20 mg/2ml Vial SLOW IVP SCH (21:38)
[2023-04-29] MEDS: Atorvastatin Calcium 20 MG TAB PO SCH (21:39)
[2023-04-29 22:11] LABS: Hematocrit 35.5 % (42.0-52.0); Hemoglobin 11.8 g/dL (14.0-18.0)
[2023-04-29 22:32] LABS: Potassium 4.3 mmol/L (3.5-5.1)
[2023-04-29] MEDS: fentaNYL 50 mcg/mL 1 mL Vial SLOW IVP PRN (23:11)
[2023-04-30] MEDS: fentaNYL 50 mcg/mL 1 mL Vial SLOW IVP PRN ×2 (02:50→05:54)
[2023-04-30 04:30] LABS: #Basophils 0.1 thou/uL (0.0-0.2); #Eosinphils 1.2 thou/uL (0.0-0.7); #Monocytes 1.2 thou/uL (0.11-0.59); #Neutrophils 8.9 thou/uL (1.40-6.50); %Basophils 0.4 % (0.0-1.0); %Eosinophils 9.2 % (0.0-10.0); %Lymphocytes 10.8 % (21.0-51.0); %Monocytes 9.2 % (0.0-10.0); %Neutrophils 70.2 % (42.0-75.0); Hematocrit 34.9 % (42.0-52.0); Hemoglobin 11.7 g/dL (14.0-18.0); Mean Corpuscular HGB CONC 33.5 g/dL (32.0-36.0); Mean Corpuscular Hemoglobin 30.1 pg (27.0-31.0); Mean Corpuscular Volume 89.7 fl (78.0-98.0); Mean Platelet Volume 10.9 fL (7.4-10.4); Platelet Count 204 10x3/uL (130-400); Red Blood Cell (RBC) Count 3.89 mill/uL (4.70-6.10); White Blood Cell (WBC) Count 12.6 10x3/uL (4.8-10.8)
[2023-04-30 04:59] LABS: Calcium 8.3 mg/dL (7.8-10.44); Chloride 106 mmol/L (98-107); Glucose 126 mg/dL (70-105); Potassium 4.6 mmol/L (3.5-5.1); Sodium 137 mmol/L (136-145)
[2023-04-30 05:02] LABS: Anion Gap 13 mmol/L (10-20); BUN (Urea Nitrogen) 19 mg/dL (8.4-25.7); Calc. Creatinine Clearance 83 mL/min (70-130); Carbon Dioxide 23 mmol/L (22-29); Estimated GFR 55; Magnesium 1.8 mg/dL (1.6-2.6)
[2023-04-30] MEDS: Lactated Ringer's 1,000 ML IV SCH ×2 (06:14→08:10)
[2023-04-30] MEDS: HYDROcodone/Acetaminophen 5/325 mg Tablet PO PRN ×4 (06:28→22:15)
[2023-04-30] MEDS: Famotidine/PF 20 mg/2ml Vial SLOW IVP SCH ×2 (08:10→20:43)
[2023-04-30] MEDS: Magnesium 2 GM/50 ML(in water) 2 GM in Premix 1 BAG IVPB SCH (08:14)
[2023-04-30] MEDS: Clopidogrel Bisulfate 75 MG TAB PO SCH (08:15)
[2023-04-30] MEDS: Benzonatate 100 MG CAP PO SCH ×3 (08:15→20:44)
[2023-04-30] MEDS: CEFAZOLIN 2 GM in Sodium Chloride 0.9% 100 ML IVPB SCH (08:15)
[2023-04-30] MEDS: Polyethylene Glycol 3350 17 GM Packet PO SCH (08:15)
[2023-04-30] MEDS: Aspirin 81 mg Enteric Coated Tablet PO SCH (08:15)
[2023-04-30] MEDS: Insulin Regular 300 UNITS/3 ML VIAL SC PRN ×4 (08:16→20:44)
[2023-04-30] MEDS: Insulin Glargine 30 UNITS/0.3 ML VIAL SC SCH ×2 (08:18→20:43)
[2023-04-30] MEDS ORDERED: Aspirin 325 MG TAB PO SCH (09:00)
[2023-04-30] MEDS: DOBUTamine 500 mg/250 ml 250 ML IVPB SCH (13:12)
[2023-04-30] MEDS ORDERED: Insulin Glargine 30 UNITS/0.3 ML VIAL SC PRN (15:58)
[2023-04-30] MEDS: Atorvastatin Calcium 20 MG TAB PO SCH (20:44)
[2023-05-01] MEDS: Insulin Regular 300 UNITS/3 ML VIAL SC PRN ×5 (00:13→18:37)
[2023-05-01] MEDS: fentaNYL 50 mcg/mL 1 mL Vial SLOW IVP PRN (00:15)
[2023-05-01] MEDS: HYDROcodone/Acetaminophen 5/325 mg Tablet PO PRN ×5 (02:35→22:57)
[2023-05-01] MEDS: Lactated Ringer's 1,000 ML IV SCH (04:10)
[2023-05-01 04:27] LABS: #Basophils 0.1 thou/uL (0.0-0.2); #Eosinphils 0.8 thou/uL (0.0-0.7); #Monocytes 1.9 thou/uL (0.11-0.59); #Neutrophils 11.7 thou/uL (1.40-6.50); %Basophils 0.3 % (0.0-1.0); %Eosinophils 4.8 % (0.0-10.0); %Lymphocytes 10.4 % (21.0-51.0); %Monocytes 11.5 % (0.0-10.0); %Neutrophils 72.5 % (42.0-75.0); Hemoglobin 10.3 g/dL (14.0-18.0); Mean Corpuscular HGB CONC 33.2 g/dL (32.0-36.0); Mean Corpuscular Hemoglobin 29.8 pg (27.0-31.0); Mean Corpuscular Volume 89.6 fl (78.0-98.0); Mean Platelet Volume 10.5 fL (7.4-10.4); Platelet Count 174 10x3/uL (130-400); RBC Distribution Width 13.2 % (11.5-14.5); Red Blood Cell (RBC) Count 3.46 mill/uL (4.70-6.10); White Blood Cell (WBC) Count 16.2 10x3/uL (4.8-10.8)
[2023-05-01 04:54] LABS: Anion Gap 12 mmol/L (10-20); BUN (Urea Nitrogen) 19 mg/dL (8.4-25.7); Calc. Creatinine Clearance 78 mL/min (70-130); Calcium 8.5 mg/dL (7.8-10.44); Carbon Dioxide 24 mmol/L (22-29); Chloride 100 mmol/L (98-107); Estimated GFR 50; Glucose 149 mg/dL (70-105); Potassium 4.5 mmol/L (3.5-5.1); Sodium 131 mmol/L (136-145)
[2023-05-01] MEDS ORDERED: Nitroglycerin 0.4 MG TAB (25 Tab Bottle) SL PRN (08:04)
[2023-05-01] MEDS ORDERED: Mineral Oil ENEMA PR PRN (08:04)
[2023-05-01] MEDS ORDERED: Artificial Tear Sol 15 ML BOT EA EYE PRN (08:04)
[2023-05-01] MEDS ORDERED: Glucagon 1 MG/ML KIT SC PRN (08:45)
[2023-05-01] MEDS: Famotidine 20 MG TAB PO SCH ×2 (08:45→21:52)
[2023-05-01] MEDS: Clopidogrel Bisulfate 75 MG TAB PO SCH (08:45)
[2023-05-01] MEDS: Aspirin 81 mg Enteric Coated Tablet PO SCH (08:45)
[2023-05-01] MEDS: Polyethylene Glycol 3350 17 GM Packet PO SCH (08:45)
[2023-05-01] MEDS: Potassium Chloride 10 MEQ TAB PO SCH (08:45)
[2023-05-01] MEDS ORDERED: Dextrose 5% in Water 1,000 ML IV PRN (08:45)
[2023-05-01] MEDS ORDERED: Dextrose 50% Abboject 50 ML SYRINGE SLOW IVP PRN (08:45)
[2023-05-01] MEDS: Benzonatate 100 MG CAP PO SCH ×3 (08:45→21:52)
[2023-05-01] MEDS: Furosemide 40 MG TAB PO SCH (08:45)
[2023-05-01] MEDS: Magnesium 2 GM/50 ML(in water) 2 GM in Premix 1 BAG IVPB SCH (08:46)
[2023-05-01] MEDS: Insulin Glargine 30 UNITS/0.3 ML VIAL SC SCH ×2 (08:47→21:52)
[2023-05-01] MEDS: DOBUTamine 500 mg/250 ml 250 ML IVPB SCH (13:25)
[2023-05-01] MEDS: Atorvastatin Calcium 20 MG TAB PO SCH (21:52)
[2023-05-02 05:29] LABS: Anion Gap 11 mmol/L (10-20); BUN (Urea Nitrogen) 24 mg/dL (8.4-25.7); Calc. Creatinine Clearance 73 mL/min (70-130); Calcium 8.6 mg/dL (7.8-10.44); Carbon Dioxide 25 mmol/L (22-29); Chloride 96 mmol/L (98-107); Estimated GFR 45; Glucose 158 mg/dL (70-105); Potassium 4.2 mmol/L (3.5-5.1); Sodium 128 mmol/L (136-145)
[2023-05-02] MEDS: HYDROcodone/Acetaminophen 5/325 mg Tablet PO PRN ×3 (08:46→20:15)
[2023-05-02] MEDS: Aspirin 81 mg Enteric Coated Tablet PO SCH (08:48)
[2023-05-02] MEDS: Potassium Chloride 10 MEQ TAB PO SCH (08:48)
[2023-05-02] MEDS: Benzonatate 100 MG CAP PO SCH ×3 (08:49→20:14)
[2023-05-02] MEDS: Clopidogrel Bisulfate 75 MG TAB PO SCH (08:49)
[2023-05-02] MEDS: Polyethylene Glycol 3350 17 GM Packet PO SCH (08:49)
[2023-05-02] MEDS: Furosemide 40 MG TAB PO SCH (08:49)
[2023-05-02] MEDS: Famotidine 20 MG TAB PO SCH ×2 (08:49→20:15)
[2023-05-02] MEDS: Insulin Glargine 30 UNITS/0.3 ML VIAL SC SCH ×2 (08:50→20:15)
[2023-05-02] MEDS ORDERED: Iopamidol 370 76% 100 ML VIAL ONE (13:56)
[2023-05-02] MEDS: Insulin Regular 300 UNITS/3 ML VIAL SC PRN ×2 (14:34→19:04)
[2023-05-02] MEDS: Atorvastatin Calcium 20 MG TAB PO SCH (20:15)
[2023-05-03] MEDS: HYDROcodone/Acetaminophen 5/325 mg Tablet PO PRN ×4 (05:39→20:45)
[2023-05-03 07:30] LABS: #Basophils 0.1 thou/uL (0.0-0.2); #Eosinphils 3.6 thou/uL (0.0-0.7); #Monocytes 1.6 thou/uL (0.11-0.59); #Neutrophils 8.4 thou/uL (1.40-6.50); %Basophils 0.7 % (0.0-1.0); %Eosinophils 22.5 % (0.0-10.0); %Lymphocytes 14.2 % (21.0-51.0); %Monocytes 9.7 % (0.0-10.0); %Neutrophils 52.4 % (42.0-75.0); Hematocrit 29.2 % (42.0-52.0); Hemoglobin 9.7 g/dL (14.0-18.0); Mean Corpuscular HGB CONC 33.2 g/dL (32.0-36.0); Mean Corpuscular Hemoglobin 29.8 pg (27.0-31.0); Mean Corpuscular Volume 89.6 fl (78.0-98.0); Mean Platelet Volume 11.2 fL (7.4-10.4); Platelet Count 221 10x3/uL (130-400); RBC Distribution Width 13.2 % (11.5-14.5); Red Blood Cell (RBC) Count 3.26 mill/uL (4.70-6.10); White Blood Cell (WBC) Count 16.1 10x3/uL (4.8-10.8)
[2023-05-03 08:05] LABS: Anion Gap 13 mmol/L (10-20); BUN (Urea Nitrogen) 29 mg/dL (8.4-25.7); Calc. Creatinine Clearance 76 mL/min (70-130); Calcium 8.7 mg/dL (7.8-10.44); Carbon Dioxide 24 mmol/L (22-29); Chloride 97 mmol/L (98-107); Estimated GFR 48; Glucose 108 mg/dL (70-105); Sodium 130 mmol/L (136-145)
[2023-05-03] MEDS: Aspirin 81 mg Enteric Coated Tablet PO SCH (08:35)
[2023-05-03] MEDS: Clopidogrel Bisulfate 75 MG TAB PO SCH (08:35)
[2023-05-03] MEDS: Benzonatate 100 MG CAP PO SCH ×3 (08:35→20:45)
[2023-05-03] MEDS: Famotidine 20 MG TAB PO SCH ×2 (08:35→20:45)
[2023-05-03] MEDS: Potassium Chloride 10 MEQ TAB PO SCH (08:35)
[2023-05-03] MEDS: Furosemide 40 MG TAB PO SCH (08:36)
[2023-05-03] MEDS: Metoprolol Tartrate 25 MG TAB PO SCH ×2 (08:36→20:45)
[2023-05-03] MEDS: Insulin Glargine 30 UNITS/0.3 ML VIAL SC SCH (08:37)
[2023-05-03] MEDS: Polyethylene Glycol 3350 17 GM Packet PO SCH (08:38)
[2023-05-03] MEDS: Insulin Regular 300 UNITS/3 ML VIAL SC PRN ×2 (12:32→16:38)
[2023-05-03] MEDS: Atorvastatin Calcium 20 MG TAB PO SCH (20:45)
[2023-05-03] MEDS: HumuLIN 70/30 100 Unit/ ml 10 ml Vial SC SCH (20:46)
[2023-05-04 05:42] LABS: Anion Gap 13 mmol/L (10-20); BUN (Urea Nitrogen) 34 mg/dL (8.4-25.7); Calc. Creatinine Clearance 71 mL/min (70-130); Calcium 8.6 mg/dL (7.8-10.44); Carbon Dioxide 24 mmol/L (22-29); Chloride 98 mmol/L (98-107); Estimated GFR 44; Glucose 134 mg/dL (70-105); Sodium 131 mmol/L (136-145)
[2023-05-04] MEDS: Clopidogrel Bisulfate 75 MG TAB PO SCH (09:15)
[2023-05-04] MEDS: Benzonatate 100 MG CAP PO SCH ×3 (09:15→20:44)
[2023-05-04] MEDS: Aspirin 81 mg Enteric Coated Tablet PO SCH (09:15)
[2023-05-04] MEDS: Potassium Chloride 10 MEQ TAB PO SCH (09:15)
[2023-05-04] MEDS: Famotidine 20 MG TAB PO SCH ×2 (09:15→20:44)
[2023-05-04] MEDS: Furosemide 40 MG TAB PO SCH (09:16)
[2023-05-04] MEDS: Lisinopril 5 MG TAB PO SCH (09:16)
[2023-05-04] MEDS: HYDROcodone/Acetaminophen 5/325 mg Tablet PO PRN ×3 (09:16→20:44)
[2023-05-04] MEDS: Metoprolol Tartrate 25 MG TAB PO SCH ×2 (09:16→20:44)
[2023-05-04] MEDS: Polyethylene Glycol 3350 17 GM Packet PO SCH (09:16)
[2023-05-04] MEDS: HumuLIN 70/30 100 Unit/ ml 10 ml Vial SC SCH ×2 (09:19→20:46)
[2023-05-04] MEDS: Insulin Regular 300 UNITS/3 ML VIAL SC PRN ×3 (11:48→20:47)
[2023-05-04] MEDS: Atorvastatin Calcium 20 MG TAB PO SCH (20:44)
[2023-05-05] MEDS: Guaifenesin DM 100-10/5 ML UDCUP PO PRN ×2 (03:26→19:18)
[2023-05-05] MEDS: HYDROcodone/Acetaminophen 5/325 mg Tablet PO PRN ×3 (03:27→18:06)
[2023-05-05] MEDS: Benzonatate 100 MG CAP PO SCH ×3 (09:09→20:39)
[2023-05-05] MEDS: Aspirin 81 mg Enteric Coated Tablet PO SCH (09:09)
[2023-05-05] MEDS: Clopidogrel Bisulfate 75 MG TAB PO SCH (09:09)
[2023-05-05] MEDS: Famotidine 20 MG TAB PO SCH ×2 (09:09→20:39)
[2023-05-05] MEDS: Polyethylene Glycol 3350 17 GM Packet PO SCH (09:09)
[2023-05-05] MEDS: Furosemide 40 MG TAB PO SCH (09:09)
[2023-05-05] MEDS: Lisinopril 5 MG TAB PO SCH (09:10)
[2023-05-05] MEDS: Metoprolol Tartrate 25 MG TAB PO SCH ×2 (09:10→20:39)
[2023-05-05] MEDS: HumuLIN 70/30 100 Unit/ ml 10 ml Vial SC SCH ×2 (09:10→20:40)
[2023-05-05] MEDS: Potassium Chloride 10 MEQ TAB PO SCH (09:10)
[2023-05-05] MEDS: Insulin Regular 300 UNITS/3 ML VIAL SC PRN ×3 (11:42→20:40)
[2023-05-05] MEDS ORDERED: Furosemide 20 MG/2 ML VIAL SLOW IVP SCH (18:45)
[2023-05-05] MEDS: Atorvastatin Calcium 20 MG TAB PO SCH (20:39)
[2023-05-06] MEDS: HYDROcodone/Acetaminophen 5/325 mg Tablet PO PRN ×4 (01:29→20:20)
[2023-05-06] MEDS: Guaifenesin DM 100-10/5 ML UDCUP PO PRN ×2 (01:30→08:43)
[2023-05-06] MEDS: Polyethylene Glycol 3350 17 GM Packet PO SCH (08:40)
[2023-05-06] MEDS: Aspirin 81 mg Enteric Coated Tablet PO SCH (08:42)
[2023-05-06] MEDS: Furosemide 40 MG TAB PO SCH (08:42)
[2023-05-06] MEDS: Benzonatate 100 MG CAP PO SCH ×3 (08:42→20:20)
[2023-05-06] MEDS: Lisinopril 5 MG TAB PO SCH (08:42)
[2023-05-06] MEDS: Famotidine 20 MG TAB PO SCH ×2 (08:42→20:20)
[2023-05-06] MEDS: Metoprolol Tartrate 25 MG TAB PO SCH ×2 (08:42→20:20)
[2023-05-06] MEDS: Potassium Chloride 10 MEQ TAB PO SCH (08:43)
[2023-05-06] MEDS: Clopidogrel Bisulfate 75 MG TAB PO SCH (08:43)
[2023-05-06] MEDS: HumuLIN 70/30 100 Unit/ ml 10 ml Vial SC SCH ×2 (08:45→20:28)
[2023-05-06] MEDS: Insulin Regular 300 UNITS/3 ML VIAL SC PRN ×2 (12:59→17:05)
[2023-05-06 16:54] LABS: Anion Gap 14 mmol/L (10-20); BUN (Urea Nitrogen) 31 mg/dL (8.4-25.7); Calc. Creatinine Clearance 63 mL/min (70-130); Calcium 9.2 mg/dL (7.8-10.44); Carbon Dioxide 26 mmol/L (22-29); Chloride 97 mmol/L (98-107); Estimated GFR 36; Glucose 141 mg/dL (70-105); Potassium 4.7 mmol/L (3.5-5.1); Sodium 132 mmol/L (136-145)
[2023-05-06] MEDS ORDERED: Atorvastatin Calcium 40 MG TAB PO SCH (21:00)
[2023-05-07 04:34] LABS: Anion Gap 13 mmol/L (10-20); BUN (Urea Nitrogen) 28 mg/dL (8.4-25.7); Calc. Creatinine Clearance 68 mL/min (70-130); Calcium 9.3 mg/dL (7.8-10.44); Carbon Dioxide 26 mmol/L (22-29); Chloride 96 mmol/L (98-107); Estimated GFR 40; Glucose 121 mg/dL (70-105); Potassium 4.4 mmol/L (3.5-5.1); Sodium 131 mmol/L (136-145)
[2023-05-07] MEDS: Aspirin 81 mg Enteric Coated Tablet PO SCH (10:12)
[2023-05-07] MEDS: Benzonatate 100 MG CAP PO SCH (10:12)
[2023-05-07] MEDS: Polyethylene Glycol 3350 17 GM Packet PO SCH (10:12)
[2023-05-07] MEDS: Furosemide 40 MG TAB PO SCH (10:12)
[2023-05-07] MEDS: Clopidogrel Bisulfate 75 MG TAB PO SCH (10:13)
[2023-05-07] MEDS: Famotidine 20 MG TAB PO SCH (10:13)
[2023-05-07] MEDS: Metoprolol Tartrate 25 MG TAB PO SCH (10:13)
[2023-05-07] MEDS: Potassium Chloride 10 MEQ TAB PO SCH (10:13)
[2023-05-07] MEDS: Lisinopril 5 MG TAB PO SCH (10:13)
[2023-05-07] MEDS: HumuLIN 70/30 100 Unit/ ml 10 ml Vial SC SCH (10:14)
[2023-05-07] MEDS: Insulin Regular 300 UNITS/3 ML VIAL SC PRN (10:52)
[2023-05-07 11:51] VITALS: TEMP 98.1
[2023-05-07 11:57] VITALS: BP 117/63
== END 2023-05-07 15:05 | disposition home or self-care (01) | DRG 233 ==
LOC: ERS 08:32 → 2SW 12:26 → OBSVTOIN 04-13 12:26 → CCU 04-29 09:55 → 2NO 05-01 10:10
PROVIDERS: ADMIT Family Medicine; ATTEND Internal Medicine
PROC: 4A023N7 Measurement of Cardiac Sampling and Pressure, Left Heart, Percutaneous Approach (ICD-10-PCS; 2023-04-23)
PROC: B2111ZZ Fluoroscopy of Multiple Coronary Arteries using Low Osmolar Contrast (ICD-10-PCS; 2023-04-23)
PROC: B2151ZZ Fluoroscopy of Left Heart using Low Osmolar Contrast (ICD-10-PCS; 2023-04-23)
PROC: 02100Z9 Bypass Coronary Artery, One Artery from Left Internal Mammary, Open Approach (ICD-10-PCS; principal; 2023-04-29)
PROC: 021209W Bypass Coronary Artery, Three Arteries from Aorta with Autologous Venous Tissue, Open Approach (ICD-10-PCS; 2023-04-29)
PROC: 06BP4ZZ Excision of Right Saphenous Vein, Percutaneous Endoscopic Approach (ICD-10-PCS; 2023-04-29)
PROC: 5A1221Z Performance of Cardiac Output, Continuous (ICD-10-PCS; 2023-04-29)
PROC: 02L70CK Occlusion of Left Atrial Appendage with Extraluminal Device, Open Approach (ICD-10-PCS; 2023-04-29)
PROC: 4A133R1 Monitoring of Arterial Saturation, Peripheral, Percutaneous Approach (ICD-10-PCS; 2023-04-29)
PROC: 3E033XZ Introduction of Vasopressor into Peripheral Vein, Percutaneous Approach (ICD-10-PCS; 2023-04-29)
DX: I25.10 Atherosclerotic heart disease of native coronary artery without angina pectoris (principal); I21.4 Non-ST elevation (NSTEMI) myocardial infarction; I50.23 Acute on chronic systolic (congestive) heart failure; J18.9 Pneumonia, unspecified organism; I13.0 Hypertensive heart and chronic kidney disease with heart failure and stage 1 through stage 4 chronic kidney disease, or unspecified chronic kidney disease; N17.9 Acute kidney failure, unspecified; E11.22 Type 2 diabetes mellitus with diabetic chronic kidney disease; I42.9 Cardiomyopathy, unspecified; N18.9 Chronic kidney disease, unspecified; G47.33 Obstructive sleep apnea (adult) (pediatric); E66.9 Obesity, unspecified; F17.210 Nicotine dependence, cigarettes, uncomplicated; Z68.37 Body mass index [BMI] 37.0-37.9, adult; D72.829 Elevated white blood cell count, unspecified; E78.5 Hyperlipidemia, unspecified; Z11.52 Encounter for screening for COVID-19; Z83.3 Family history of diabetes mellitus; Z71.84 Encounter for health counseling related to travel
CPT/HCPCS: 36415; 36416; 36430; 71045; 71046; 71275; 80048; 80053; 80061; 80306; 82805; 83605; 83735; 83880; 84145; 84443; 84484; 84550; 85025; 85610; 85730; 86140; 86850; 86900; 86901; 87040; 87324; 87449; 87633; 87899; 93005; 93010; 93306; 93458; 93798; 94002; 94640; 94760; 96361; 96365; 96367; 96375; 97139; A4311; C1751; C1769; C1894; J0171; J0456; J0696; J1250; J1642; J1643; J1644; J1815; J1940; J2001; J2150; J2250; J2260; J2272; J2405; J2440; J2543; J2704; J2720; J3010; J3370; J3370-JW; J3475; J3480; J3490; J7050; J7070; J7120; J7620; P9045; Q0162; Q9967; S0017; S0028